=== PATIENT | male | born 1960 | race Two or more races ===

== ENCOUNTER 2021-03-11 01:00 | Emergency (ER) | payer OTHER ==
[~2021-03-11] VITALS: Ht 175.3 cm; Wt 107.0 kg
--- NOTE | 2021-03-11 01:05 | NUR ---
Pt ambulated to ER with c/o generalized weakness and sweating x2 weeks. No SOB or labored breathing, afebrile. Denies CP/pressure. No c/o GI/ distress. at bedside.
--- NOTE | 2021-03-11 01:10 | NUR ---
Dr. Doss at bedside, MSE in progress.
[2021-03-11] MEDS ORDERED: IV NORMAL SALINE 1000 ML BAG IV ONE (01:30)
[2021-03-11 01:47] LABS: CREATININE 1.1 mg/dL (0.6-1.3); POTASSIUM 4.4 mmol/L (3.5-5.1)
[2021-03-11 01:48] LABS: HEMATOCRIT 37.3 % (36.7-47.1); MEAN CORPUSCULAR HEMOGLOBIN 30.7 uug (23.8-33.4); MEAN CORPUSCULAR VOLUME 88.9 fL (73.0-96.2); PLATELET COUNT (AUTO) 335 K/uL (152-348)
[2021-03-11 01:54] LABS: BILIRUBIN,DIRECT 0.2 mg/dL (0.0-0.2); BILIRUBIN,TOTAL 0.3 mg/dL (0.2-1.0); TOTAL PROTEIN, SERUM 7.2 g/dL (6.4-8.2)
--- NOTE | 2021-03-11 02:29 | NUR ---
Patient discharged to home in stable condition. A/O x4, no SOB or labored breathing. No c/o generalized weakness. Written and verbal after care instructions given. Patient verbalizes understanding of instructions. Stressed follow up or return to ER for worsening s/s. Steady gait. Accompanied by .
[2021-03-11 02:30] VITALS: BP 122/68
== END 2021-03-11 02:30 | disposition home or self-care (01) ==
LOC: ER 01:02
DX: R53.1 Weakness (principal); E11.22 Type 2 diabetes mellitus with diabetic chronic kidney disease; E11.65 Type 2 diabetes mellitus with hyperglycemia; N18.9 Chronic kidney disease, unspecified; F17.210 Nicotine dependence, cigarettes, uncomplicated; R60.9 Edema, unspecified
CPT/HCPCS: 36415; 83690; 85025; A4663; J7030